=== PATIENT | female | born 1970 | race Caucasian/White ===

== ENCOUNTER 2025-04-04 00:21 | Outpatient (CLI) | payer SELFPAY ==
[2025-04-04 11:39] LABS: Abs Immature Grans 0.02 10^3/uL (0.0-0.06); HCT 38.3 % (36.0-46.0); HGB 12.3 g/dL (11.2-15.7); Immature Grans % 0.3 %; MCH 28.3 pg (27.0-33.0); MCHC 32.1 % (32.0-36.0); MCV 88 fL (80-95); MPV 8.8 fL (8.0-11.0); Platelet Count 268 10^3/uL (130-400); RBC 4.35 10^6/uL (3.93-5.22); RDW 13.2 % (11.7-14.6); RDW-SD 42.9 fL; WBC 5.72 10^3/uL (4.4-10.8)
[2025-04-04 12:11] LABS: ALT 22 U/L (10-49); AST 21 U/L (<34); Albumin 4.3 g/dL (3.2-5.0); Alkaline Phosphatase 131 U/L (46-116); Anion Gap 8 mmol/L (3-11); BUN 13 mg/dL (9-23); Bilirubin, Total 0.4 mg/dL (0.2-1.2); CO2 28.0 mmol/L (20.0-31.0); Calcium 9.2 mg/dL (8.3-10.6); Chloride 105 mmol/L (98-107); Glucose 103 mg/dL (74-106); Potassium 3.6 mmol/L (3.5-5.1); Sodium 141 mmol/L (136-145); Total Protein 8.0 g/dL (5.7-8.2)
--- NOTE | 2025-04-04 14:57 | W.ED.GENAD ---
Discharge Plan Discharge Details Attending Provider: Radha Silva Primary Care Provider: Unknown,Unknown HPI HPI Narrative: This patient had initially directed to the emergency department to be seen. She had meant to go to the lab. I did not see her nor participate in her care. Course Lab/Test Results Lab/Test Results: Laboratory Tests Range/Units 04/04/25 10:47 WBC (4.4-10.8) 10^3/uL 5.72 RBC (3.93-5.22) 10^6/uL 4.35 Hgb (11.2-15.7) g/dL 12.3 Hct (36.0-46.0) % 38.3 MCV (80-95) fL 88 MCH (27.0-33.0) pg 28.3 MCHC (32.0-36.0) % 32.1 RDW (11.7-14.6) % 13.2 Plt Count (130-400) 10^3/uL 268 MPV (8.0-11.0) fL 8.8 Immature Gran % % 0.3 Neutrophils % % 50.0 Lymphocytes % % 40.4 Monocytes % % 6.5 Eosinophils % % 2.3 Basophils % % 0.5 Nucleated RBC % (0.0-0.3) % 0.0 Absolute Neutrophils (1.2-6.7) 10^3/uL 2.86 Absolute Lymphocytes (1.2-3.4) 10^3/uL 2.31 Absolute Monocytes (0.1-0.8) 10^3/uL 0.37 Absolute Eosinophils (0.0-0.7) 10^3/uL 0.13 Absolute Basophils (0.0-0.2) 10^3/uL 0.03 Sodium (136-145) mmol/L 141 Potassium (3.5-5.1) mmol/L 3.6 Chloride (98-107) mmol/L 105 Carbon Dioxide (20.0-31.0) mmol/L 28.0 Anion Gap (3-11) mmol/L 8 BUN (9-23) mg/dL 13 Creatinine (0.55-1.02) mg/dL 0.79 Est GFR (CKD-EPI 2020) (mL/min/1.73m2) 75.39 Glucose (74-106) mg/dL 103 Calcium (8.3-10.6) mg/dL 9.2 Total Bilirubin (0.2-1.2) mg/dL 0.4 AST (<34) U/L 21 ALT (10-49) U/L 22 Alkaline Phosphatase (46-116) U/L 131 H Total Protein (5.7-8.2) g/dL 8.0 Albumin (3.2-5.0) g/dL 4.3 PFSH Social History Smoking risk assessment performed?: No
[2025-04-04 17:46] LABS: CA 125 7 U/mL (<30)
== END 2025-04-04 00:22 | disposition home or self-care (01) ==
LOC: LBO 00:21
PROVIDERS: Visit Provider Obstetrics & Gynecology Gynecologic Oncology
DX: C56.1 Malignant neoplasm of right ovary (principal)
CPT/HCPCS: 36415; 80053; 86304; 85025